=== PATIENT | male | born 1965 | race Caucasian/White ===

== ENCOUNTER 2017-01-04 10:01 | Inpatient (IN) | payer BC ==
[~2017-01-04] VITALS: Ht 162.6 cm; Wt 72.2 kg
[2017-01-04] VITALS (314 sets, daily range): BP systolic 116–176; BP diastolic 78–127; PULSE 61–100; TEMP 97.6–97.7; O2SAT 96–100
[~2017-01-04 10:01] MED LIST: ALBUTEROL0.09 MG/A1 IH; AMOXICILLIN 50500 MG PO; BACTRIM PO; CEPHALEXIN500 M1 PO; CLEOCIN HCL300 MG PO; DOXYCYCLINE 10100 MG PO; LORTAB 5/500 501 TAB PO; METRONIDAZOLE500 MG PO; NO HOME MEDICATIONS; NORCO 325 MG-51 TAB PO; PERCOCET 325 MG1 TA2 PO; PERIDEX (CHLOR480 ML MM; PHENERGAN 25 TA25 MG PO; PREDNISONE20 MG PO; PROAIR HFA0.09 MG/AC IH; TYLENOL W/COD1 UDTAB PO
[2017-01-04 11:25] LABS: BASO # 0.1 (0.0-0.2); BASO % 0.6 % (0.0-2.0); EOS # 0.1 (0.0-0.7); EOS % 1.6 % (0-4.0); GRAN % 62.6 % (42.2-75.2); HEMATOCRIT 47.5 % (42.0-52.0); HEMOGLOBIN 16.3 g/dl (13.5-18.0); LYMPH # 2.3 (1.2-3.4); LYMPH % 28.9 % (20.0-51.0); MEAN CELL VOLUME 92 fl (80.0-100.0); MEAN CORPUSCULAR HEMOGLOBIN 32 pg (27.0-31.0); MEAN CORPUSCULAR HGB CONC 34 g/dl (33.0-37.0); MEAN PLATELET VOLUME 8.8 fl (7.4-10.4); MONO # 0.5 (0.1-0.6); MONO % 5.9 % (1.7-9.3); PLATELET COUNT 250 K/mm3 (130-400); RED BLOOD COUNT 5.17 M/mm3 (4.20-5.60); REDCELL DISTRIBUTION WIDTH-CV 12.7 % (11.5-14.5)
[2017-01-04 11:28] LABS: PROTHROMBIN TIME 10.8 SECONDS (9.7-12.8)
[2017-01-04 11:29] LABS: ADJUSTED CALCIUM 8.9 mg/dL (8.4-10.2); ALANINE AMINOTRANSFERASE 36 U/L (21-72); ALBUMIN 4.5 gm/dL (3.5-5.0); ALKALINE PHOSPHATASE 74 U/L (50-136); ANION GAP 11 mmol/L (7-16); BILIRUBIN,TOTAL 0.9 mg/dL (0.0-1.0); BLOOD UREA NITROGEN 15 mg/dL (9-20); CALCIUM 9.3 mg/dL (8.4-10.2); CARBON DIOXIDE 23 mmol/L (22-30); CHLORIDE 104 mmol/L (98-107); CREATININE, serum 1.06 mg/dL (0.66-1.25); GLUCOSE 112 mg/dL (74-106); LIPASE 75 U/L (23-300); POTASSIUM 4.2 mmol/L (3.4-5.0); SODIUM 138 mmol/L (137-145); TOTAL PROTEIN 7.2 gm/dL (6.4-8.2)
[2017-01-04 11:30] LABS: PARTIAL THROMBOPLASTIN TIME 29.8 SECONDS (26.0-37.0)
[2017-01-04 11:41] LABS: B-TYPE NATRIURETIC PEPTIDE 124 pg/mL (0-125); TROPONIN-I < 0.012 ng/mL (0.000-0.034)
[2017-01-05] VITALS (129 sets, daily range): BP systolic 116–123; BP diastolic 69–87; PULSE 65–78; TEMP 97.3–97.8; O2SAT 91–100
[2017-01-05] MEDS ORDERED: TOPROL XL100 MG PO (10:00)
[2017-01-05] MEDS ORDERED: HCTZ 25MG TAB25 MG PO (10:01)
== END 2017-01-05 11:00 | disposition home or self-care (01) | DRG 305 ==
LOC: COL.ER 10:01 → ICU 12:05
PROVIDERS: Emergency Medicine
DX: I16.0 Hypertensive urgency (principal); F17.210 Nicotine dependence, cigarettes, uncomplicated
CPT/HCPCS: 99222-AI; 99239; J7030; J7060

== ENCOUNTER → 2017-03-01 | Outpatient (CLI) | payer BC ==
[2017-01-23 17:38] LABS: CHOLESTEROL RISK RATIO 3.5
[~2017-03-01] MED LIST changes: +HCTZ 25MG TAB25 MG PO; +TOPROL XL100 MG PO
== END ==
LOC: COL.LAB 01-23 16:27 → COL.RAD 11:50
PROVIDERS: Family Medicine
DX: J44.1 Chronic obstructive pulmonary disease with (acute) exacerbation (principal); I10 Essential (primary) hypertension; Z72.0 Tobacco use

== ENCOUNTER 2020-03-24 09:55 | Outpatient (RCR) | payer OTHER ==
[~2020-03-24 09:55] MED LIST changes: +MEDROL 4MG DOSPA4 MG PO
== END 2020-04-20 | disposition home or self-care (01) ==
LOC: WSOH
DX: S46.012A Strain of muscle(s) and tendon(s) of the rotator cuff of left shoulder, initial encounter (principal); F17.210 Nicotine dependence, cigarettes, uncomplicated; Z98.1 Arthrodesis status; Y99.0 Civilian activity done for income or pay

== ENCOUNTER 2020-06-06 08:14 | Emergency (ER) | payer OTHER ==
[~2020-06-06] VITALS: Ht 162.6 cm; Wt 74.1 kg
[2020-06-06 08:18] VITALS: TEMP 98
[2020-06-06 09:10] LABS: BASO # 0.1 (0.0-0.2); BASO % 0.6 % (0.0-2.0); EOS # 0.1 (0.0-0.7); EOS % 1.5 % (0-4.0); GRAN # 5.7 (1.4-6.5); GRAN % 66.5 % (42.2-75.2); HEMATOCRIT 47.9 % (42.0-52.0); HEMOGLOBIN 16.6 g/dl (13.5-18.0); LYMPH % 23.4 % (20.0-51.0); MEAN CELL VOLUME 93 fl (80.0-100.0); MEAN CORPUSCULAR HEMOGLOBIN 32 pg (27.0-31.0); MEAN CORPUSCULAR HGB CONC 35 g/dl (33.0-37.0); MONO # 0.7 (0.1-0.6); MONO % 7.7 % (1.7-9.3); PLATELET COUNT 267 K/mm3 (130-400); RED BLOOD COUNT 5.15 M/mm3 (4.20-5.60); REDCELL DISTRIBUTION WIDTH-CV 12.7 % (11.5-14.5)
[2020-06-06 09:15] LABS: ALBUMIN 4.4 gm/dL (3.5-5.0); BILIRUBIN,TOTAL 0.7 mg/dL (0.0-1.0); CALCIUM 9.8 mg/dL (8.4-10.2); CREATININE, serum 0.89 (0.66-1.25); POTASSIUM 4.1 mmol/L (3.4-5.0); TOTAL PROTEIN 7.3 gm/dL (6.4-8.2)
[2020-06-06] MEDS ORDERED: SENOKOT S 50 MG1 TAB PO (10:14)
[2020-06-06] MEDS ORDERED: MIRALAX119G PO (10:15)
[2020-06-06 10:24] VITALS: BP 173/135; PULSE 100
== END 2020-06-06 10:24 | disposition home or self-care (01) ==
LOC: COL.ER 08:14
PROVIDERS: Emergency Medicine
DX: K59.00 Constipation, unspecified (principal); M79.602 Pain in left arm; R11.0 Nausea; F17.210 Nicotine dependence, cigarettes, uncomplicated; Z88.6 Allergy status to analgesic agent
CPT/HCPCS: J2405; J3010; J7120

== ENCOUNTER 2020-09-15 13:00 | Outpatient (RCR) | payer OTHER ==
[~2020-09-15 13:00] MED LIST changes: +MIRALAX119G PO; +SENOKOT S 50 MG1 TAB PO
== END 2020-09-23 | disposition still patient (30) ==
LOC: PT.GENESIS
DX: M75.42 Impingement syndrome of left shoulder (principal)
CPT/HCPCS: G0283-GP

== ENCOUNTER 2020-12-14 15:15 | Outpatient (RCR) | payer OTHER | END 2020-12-27 | disposition home or self-care (01) | LOC: PT.GENESIS | DX: M75.42 Impingement syndrome of left shoulder (principal) ==

== ENCOUNTER 2021-03-05 08:00 | Outpatient (RCR) | payer OTHER | END 2021-04-16 | disposition home or self-care (01) | LOC: WSPT → EDSTATUS 08:00 → MKS.ESL.PT 08:30 | DX: M75.101 Unspecified rotator cuff tear or rupture of right shoulder, not specified as traumatic (principal); M75.102 Unspecified rotator cuff tear or rupture of left shoulder, not specified as traumatic ==

== ENCOUNTER 2022-04-18 02:31 | Emergency (ER) | payer SELFPAY ==
[~2022-04-18] VITALS: Ht 167.6 cm; Wt 78.2 kg
[2022-04-18 02:32] VITALS: TEMP 98
[2022-04-18 02:41] LABS: BASO # 0.1 K/mm3 (0.0-0.2); BASO % 0.7 % (0.0-2.0); EOS # 0.2 K/mm3 (0.0-0.7); EOS % 1.4 % (0.0-4.0); GRAN # 6.2 K/mm3 (1.4-6.5); GRAN % 58.9 % (42.2-75.2); HEMATOCRIT 45.1 % (42.0-52.0); HEMOGLOBIN 15.9 g/dl (13.5-18.0); LYMPH # 3.3 K/mm3 (1.2-3.4); MEAN CELL VOLUME 92 fl (80.0-100.0); MEAN CORPUSCULAR HEMOGLOBIN 33 pg (27-31); MEAN CORPUSCULAR HGB CONC 35 g/dl (33.0-37.0); MEAN PLATELET VOLUME 8.9 fl (7.4-10.4); MONO # 0.7 K/mm3 (0.1-0.6); MONO % 6.9 % (1.7-9.3); PLATELET COUNT 406 K/mm3 (130-400); RED BLOOD COUNT 4.88 M/mm3 (4.20-5.60); REDCELL DISTRIBUTION WIDTH-CV 12.7 % (11.5-14.5)
[2022-04-18 02:49] LABS: PROTHROMBIN TIME 11.5 SECONDS (9.7-12.8)
[2022-04-18 02:52] LABS: PARTIAL THROMBOPLASTIN TIME 32.9 SECONDS (26.0-37.0)
[2022-04-18 02:59] LABS: ALANINE AMINOTRANSFERASE 22 U/L (0-55); ALBUMIN 3.6 gm/dL (3.5-5.0); ALKALINE PHOSPHATASE 71 U/L (40-150); ANION GAP 18 mmol/L (7-16); AST,SGOT 18 U/L (5-34); BILIRUBIN,TOTAL 0.1 mg/dL (0.2-1.2); BLOOD UREA NITROGEN 12 mg/dL (8-26); CARBON DIOXIDE 18 mmol/L (22-29); CHLORIDE 108 mmol/L (98-107); CREATININE, serum 0.87 mg/dL (0.72-1.25); GLUCOSE 109 mg/dL (70-99); POTASSIUM 4.5 mmol/L (3.5-4.5); SODIUM 144 mmol/L (136-145); TOTAL PROTEIN 7.6 gm/dL (6.2-8.1)
[2022-04-18 03:13] LABS: TROPONIN-I < 0.010 ng/mL (0.00-0.033)
[2022-04-18 04:37] VITALS: BP 152/85; PULSE 84
== END 2022-04-18 04:37 | disposition home or self-care (01) ==
LOC: COL.ER 02:31
PROVIDERS: Family Medicine
DX: I10 Essential (primary) hypertension (principal); E86.0 Dehydration; F17.210 Nicotine dependence, cigarettes, uncomplicated
CPT/HCPCS: J2060; J7030